=== PATIENT | female | born 1980 | race Two or more races ===

== ENCOUNTER 2020-02-04 15:28 | Emergency (ER) | payer OTHER ==
[~2020-02-04] VITALS: Ht 170.2 cm; Wt 86.0 kg
[2020-02-04] MEDS ORDERED: SODIUM CHLORIDE 0.9% 1,000 ML IV ONE (16:05)
[2020-02-04 17:36] VITALS: BP 126/89
== END 2020-02-04 18:00 | disposition left against medical advice (07) ==
LOC: ER 15:28
DX: T40.1X1A Poisoning by heroin, accidental (unintentional), initial encounter (principal); Y92.018 Other place in single-family (private) house as the place of occurrence of the external cause
CPT/HCPCS: 71045; 93005; 99283; J7030